=== PATIENT | female | born 1965 | race Caucasian/White ===

== ENCOUNTER → 2024-02-29 14:01 | Outpatient (REF) | payer BC, SELFPAY | LOC: WDC 14:01 | PROVIDERS: ATTENDING PHYSICIAN Obstetrics & Gynecology Gynecology; FAMILY PHYSICIAN Family Medicine | DX: R92.2 Inconclusive mammogram (principal) | CPT/HCPCS: 76641 ==

== ENCOUNTER → 2024-05-02 06:05 | Outpatient (REF) | payer BC, SELFPAY ==
[2024-05-02 10:08] LABS: ALT (SGPT) 22 U/L (0-35); AST (SGOT) 32 U/L (14-36); Albumin 4.3 g/dl (3.5-5.0); Alkaline Phosphatase 62 U/L (38-126); Blood Urea Nitrogen 26 mg/dl (7-17); Calcium 9.5 mg/dl (8.4-10.2); Carbon Dioxide 29 mmol/L (22-30); Chloride 104 mmol/L (98-107); Glucose 85 mg/dl (70-99); HDL Cholesterol 74 mg/dl; LDL Cholesterol, Calculated 165 mg/dl; Potassium 4.4 mmol/L (3.5-5.1); Sodium 141 mmol/L (135-145); Total Bilirubin 0.6 mg/dl (0.2-1.3); Total Cholesterol 254 mg/dl (50-199); Triglyceride 76 mg/dl (10-149); Very Low Density Lipoprotein 15 mg/dl (0-30); eGFR > 60.00
[2024-05-02 10:36] LABS: TSH Reflex To Free T4 0.94 uIU/ml (0.47-4.68)
== END ==
LOC: HWLAB 06:05
PROVIDERS: ATTENDING PHYSICIAN Nurse Practitioner Family
DX: E03.9 Hypothyroidism, unspecified (principal); Z13.220 Encounter for screening for lipoid disorders
CPT/HCPCS: 36415; 80053; 80061; 84443

== ENCOUNTER → 2024-09-09 15:43 | Outpatient (REF) | payer BC, SELFPAY | LOC: WDC 15:43 | PROVIDERS: ATTENDING PHYSICIAN Obstetrics & Gynecology Gynecology; FAMILY PHYSICIAN Family Medicine | DX: Z12.31 Encounter for screening mammogram for malignant neoplasm of breast (principal) | CPT/HCPCS: 77063; 77067 ==

== ENCOUNTER 2024-10-15 05:49 | Emergency (ER) | payer BC, SELFPAY ==
[2024-10-15 05:51] VITALS: BP 130/92
--- NOTE | 2024-10-15 06:15 | ED.GENMED ---
History of Present Illness
General
Chief Complaint: Abdominal Symptoms
Source: patient
Exam Limitations: none
Time Seen by Provider: 10/15/24 06:08
Nursing documentation reviewed up to this point in time: agreed with
History of Present Illness
History of Present Illness:
59-year-old female with a past medical history of GERD, hypothyroidism who presents to the emergency room for evaluation of nausea, vomiting, diarrhea. Patient reports symptoms have been ongoing since although she had some slight
improvement Monday returned on Monday and consistent since. She reports nausea and vomiting, difficulty holding anything down. She reports nonbloody diarrhea. She reports mild associated abdominal pain. She says that she started to feel
dizzy/lightheaded and believes she is likely dehydrated. She thinks she may have had a low-grade fever but none since. She denies any chest pain, cough, shortness of breath, URI symptoms. Denies any other complaints.
Past History
Past History
ED Past Medical History: Other (Seasonal allergies)
ED Past Surgical History: None
Social History
Tobacco: Non-smoker
Alcohol: None
Family History
Family History: Negative Diabetes, Hypertension or CAD
Review of Systems
Review of Systems
All Other Systems: ROS reviewed and negative except as documented in HPI and ROS
Constitutional: Denies fever
EENT: Denies sore throat or runny nose
Respiratory: Denies cough or trouble breathing
Cardiac: Denies chest pain
ABD/GI: Reports abdominal pain, nausea, vomiting and diarrhea
: Denies flank pain
Musculoskeletal: Denies neck pain or back pain
Neurological: Reports dizzy; Denies headache
Phy Exam
Physical Exam
Physical Exam:
General: Awake, alert; no acute distress
Head: Normocephalic, atraumatic
Eyes: Conjunctiva normal, sclera anicteric
Throat: Airway intact, dry mucous membrane
Neck: Trachea midline
Lungs: Clear to auscultation bilaterally, no wheezing, rales, rhonchi
Heart: Regular rate and rhythm, no murmurs, gallops, or rubs
Abd: Soft, non distended, minimally tender left lower abdomen, no masses
Neuro: No gross deficits
Skin: Warm, dry
Extremities: Warm and well-perfused
Scores
Heart Failure Risk
Heart Failure Risk Score: Not Applicable
Heart Score for Chest Pain Patients
STEMI patient?: Not applicable
Withdrawal Assessment of Alcohol
Withdrawal Assessment Completed?: Not applicable
Course
Orders/Labs/Results
Orders:
Orders
10/15/24 06:09
0.9% Sodium Chloride 1000 ml [Nss] 1,000 ml IV BOLUS
Ondansetron Injectable [Zofran] 4 mg IV NOW STA
10/15/24 06:15
CT Abd/pelvis W Iv Cont Urgent
Comment:
Reason For Exam: abd pain, N/V/D
Norovirus by PCR Urgent
RANJANA Source: Feces/Stool
Specimen Description:
Stool Culture Urgent
RANJANA Source: Feces/Stool
Specimen Description:
Test Result ONCE
10/15/24 06:43
COVID-19 Antigen Urgent
Source: Nasal Swab
Complete Blood Count/With Diff Urgent
Comprehensive Metabolic Panel Urgent
HCG, Serum Qualitative Screen Urgent
Lipase Urgent
Influenza A+B Rapid Molecular Urgent
RANJANA Source: Nasal Swab
Specimen Description:
Abnormal Lab Results
10/15/24
06:43
Hgb 16.2 H g/dL
(12.0-16.0)
Lymphocytes % 16.1 L %
(20.5-51.1)
Glucose 101 H mg/dl
(70-99)
10/15/24 06:43
10/15/24 06:43
Vital Signs
Initial and Last Documented VS:
Initial Vital Signs
Temp Pulse Resp BP Pulse Ox
36.7 C 94 18 130/92 100
10/15/24 05:51 10/15/24 05:51 10/15/24 05:51 10/15/24 05:51 10/15/24 05:51
Last Documented Vital Signs
Temp Pulse Resp BP Pulse Ox
36.7 C 68 18 103/82 100
10/15/24 05:51 10/15/24 08:04 10/15/24 08:04 10/15/24 08:04 10/15/24 08:04
MDM/Problems Addressed
Differential Diagnosis Includes:
Gastroenteritis, colitis, diverticulitis
MDM/Problems Addressed:
59-year-old female presents for nausea/vomiting/diarrhea associated with mild abdominal pain persistent x 5 days. Started to feel lightheaded and dehydrated. Vitals and exam as above. Will place an IV check labs including a CBC and a CMP, lipase.
Check CT abdomen pelvis. Provide fluids and Zofran. Reassess after the above.
Labs reviewed: CBC and CMP unremarkable, lipase normal, hCG negative. COVID and flu swabs negative. CT abdomen pelvis shows no acute pathology. There was a nodule/cyst on the kidney and some mild hepatomegaly which will require outpatient
follow-up. Her LFTs are normal. Clinically patient says she is feeling a bit better after fluids and Zofran. Will trial p.o. if she is tolerating p.o. plan for discharge on bland diet with Zofran as needed. She feels very comfortable with this
plan.
*Radiology
Radiology exam reviewed: radiology read reviewed
*Pulse Oximetry
Patient hypoxic: no
*Critical Care Note
Total Time (30-74mins, 75-104mins- exclusive of procedures): Not Applicable
Data Reviewed
Source: patient and records
ED Attending Note
-
Portions of this chart may have been created with voice recognition software.� Occasional wrong word or��sound alike� substitutions may have occurred due to the inherent limitations of voice recognition software.
Discharge Plan
Departure
Patient Disposition: Home (Routine Discharge)
Date of Disposition: 10/15/24
Time of Disposition: 09:16
Patient with high blood pressure during this ER visit?: No
Discharge Problem:
Nausea, vomiting and diarrhea, Nodule on liver
Instructions: [place] Diet, Nausea and Vomiting, Adult (DC)
Prescriptions:
New
ondansetron 4 mg tablet,disintegrating
4 mg PO TIDPRN PRN (Reason: nausea/vomiting) Qty: 20 0RF
No Action
levothyroxine 125 MCG tablet
125 mcg PO DAILY
omeprazole 20 mg Tablet,Delayed Release (Dr/Ec)
20 mg PO DAILY
Referrals:
Stephanie Fitzpatrick MD [Family Provider] - Follow up in 2-3 days
Activity Restrictions/Additional Instructions:
You were seen in the emergency room for nausea, vomiting, and diarrhea. You were mildly dehydrated and given some fluids and you were given some Zofran to help with your nausea. We checked lab work which showed no significant abnormalities. We
checked a CT of your abdomen which showed a nodule or cyst on your liver which needs follow-up�you should talk to your primary doctor within the next week or 2 to follow-up on this finding; otherwise your CT showed no other acute issues. We think
you likely have a GI virus�you should eat a bland diet for the next few days and drink plenty of fluids. You can take Zofran as needed for nausea. If you feel your symptoms are worsening you should return to the emergency room to be reassessed.
Thank you for visiting the Emergency Department at [facility].
1. Please schedule a follow up appointment as directed. Call first thing tomorrow morning to make an appointment.
2. If indicated, please take your medications as instructed and indicated on discharge paperwork.
3. If any of your symptoms do not improve, or persist, or become more severe within 6-12 hours, please return to the emergency department for further care.
4. Please return to the emergency department if you develop a headache, neck pain/stiffness, fever greater than 100.4F, chest pain, shortness of breath, persistent nausea, vomiting, slurred speech, difficulty walking, numbness/tingling, weakness,
signs of infection or any other symptoms that are worrisome to you.
Please call [phone] if you have any questions.
Interventions
Interventions:
*Risk Screen - Suicide Last Done: 10/15/24 05:51
*General Assessment Last Done: 10/15/24 05:51
*Neglect/Abuse Screening Last Done: 10/15/24 05:51
ED- Fall Risk Assessment Last Done: 10/15/24 06:24
*ED COVID-19 Vaccine History Last Done: 10/15/24 06:24
MN-Lfgilj-Jpknvmjwsy Assessment Last Done: 10/15/24 06:24
Discharge Date and Time
Print Language: NORWEGI[place]
[2024-10-15] MEDS: NSS 1000 IV ×2 (06:53→10:01)
[2024-10-15] MEDS: ZOFRAN 4 MG IV (06:57)
[2024-10-15 07:05] LABS: % Basophils 0.1 % (0-2); % Eosinophils 1.2 % (0-6); % Immature Granulocytes 0.3 % (0-0.5); % Lymphocytes 16.1 % (20.5-51.1); % Monocytes 7.6 % (1.7-9.3); % Neutrophils 74.7 % (42.2-75.2); Absolute Eosinophils 0.1 10^3/uL (0-0.7); Absolute Lymphocytes 1.2 10^3/uL (1.2-3.4); Absolute Monocytes 0.6 10^3/uL (0.1-0.6); Absolute Neutrophils 5.6 10^3/uL (1.4-6.5); Hematocrit 46.6 % (37.0-47.0); Hemoglobin 16.2 g/dL (12.0-16.0); Mean Corp Hgb Conc. 34.8 g/dL (33.0-37.0); Mean Corpuscular Hgb 30.2 pg (27.0-31.0); Mean Corpuscular Volume 86.8 fL (81.0-99.0); Nucleated Red Blood Cells % 0 %; Platelet Count 248 10^3/uL (130-400); Red Blood Cell Count 5.37 10^6/uL (4.20-5.40); Red Cell Dist. Width 12.7 % (11.5-14.5); White Blood Cell Count 7.5 10^3/uL (4.8-10.8)
[2024-10-15 07:26] LABS: HCG, Serum Qualitative Screen Negative
[2024-10-15 07:35] LABS: ALT (SGPT) 22 U/L (0-35); AST (SGOT) 21 U/L (14-36); Albumin 4.3 g/dl (3.5-5.0); Alkaline Phosphatase 52 U/L (38-126); Blood Urea Nitrogen 14 mg/dl (7-17); Calcium 9.2 mg/dl (8.4-10.2); Carbon Dioxide 22 mmol/L (22-30); Chloride 103 mmol/L (98-107); Glucose 101 mg/dl (70-99); Lipase 43 U/L (23-300); Potassium 3.6 mmol/L (3.5-5.1); Sodium 136 mmol/L (135-145); Total Protein 7.1 g/dl (6.3-8.2); eGFR > 60.00
[2024-10-15 07:36] LABS: COVID-19 Antigen Negative (Negative)
[2024-10-15 08:01] VITALS: BMI 25.8
[2024-10-15 08:04] VITALS: BP 103/82
[2024-10-15 10:02] VITALS: BP 111/84
[2024-10-15 11:00] VITALS: BP 99/72
--- NOTE | 2024-10-15 11:15 | EDRN ---
Reviewed discharge instructions with patient. Verbalized understanding. Ambulated with steady gait.
[2024-10-15 11:27] VITALS: BP 99/72
== END 2024-10-15 11:15 | disposition home or self-care (01) ==
LOC: EMR 05:49
PROVIDERS: EMERGENCY PHYSICIAN Emergency Medicine; FAMILY PHYSICIAN Family Medicine
DX: R11.2 Nausea with vomiting, unspecified (principal); R19.7 Diarrhea, unspecified; K76.89 Other specified diseases of liver; E03.9 Hypothyroidism, unspecified; K21.9 Gastro-esophageal reflux disease without esophagitis
CPT/HCPCS: 99284; 96374; 96361; 74177; 80053; 83690; 84703; 85025; 87502; 87811; Q9967

== ENCOUNTER → 2024-11-15 18:50 | Outpatient (REF) | payer BC, SELFPAY | LOC: MRI 3T 18:50 | PROVIDERS: ATTENDING PHYSICIAN Internal Medicine; FAMILY PHYSICIAN Family Medicine | DX: K76.9 Liver disease, unspecified (principal) | CPT/HCPCS: 74183; A9575 ==

== ENCOUNTER → 2025-02-10 15:07 | Outpatient (REF) | payer BC, SELFPAY | LOC: WDC 15:07 | PROVIDERS: ATTENDING PHYSICIAN Obstetrics & Gynecology Gynecology; FAMILY PHYSICIAN Family Medicine | DX: R92.2 Inconclusive mammogram (principal) | CPT/HCPCS: 76641 ==

== ENCOUNTER → 2025-04-02 07:34 | Outpatient (REF) | payer BC, SELFPAY ==
[2025-04-02 08:29] LABS: ALT (SGPT) 33 U/L (0-35); AST (SGOT) 34 U/L (14-36); Albumin 4.5 g/dl (3.5-5.0); Alkaline Phosphatase 47 U/L (38-126); Blood Urea Nitrogen 15 mg/dl (7-17); Calcium 9.1 mg/dl (8.4-10.2); Carbon Dioxide 28 mmol/L (22-30); Chloride 109 mmol/L (98-107); Glucose 81 mg/dl (70-99); HDL Cholesterol 76 mg/dl; LDL Cholesterol, Calculated 185 mg/dl; Potassium 4.2 mmol/L (3.5-5.1); Sodium 142 mmol/L (135-145); Total Protein 7.4 g/dl (6.3-8.2); Very Low Density Lipoprotein 12 mg/dl (0-30); eGFR > 60.00
== END ==
LOC: REG 07:34
PROVIDERS: ATTENDING PHYSICIAN Physician Assistant; FAMILY PHYSICIAN Family Medicine
DX: Z00.00 Encounter for general adult medical examination without abnormal findings (principal); E03.9 Hypothyroidism, unspecified; K76.89 Other specified diseases of liver; F51.01 Primary insomnia; K21.9 Gastro-esophageal reflux disease without esophagitis
CPT/HCPCS: 36415; 80053; 80061; 84439; 84443

== ENCOUNTER → 2025-04-23 14:21 | Outpatient (REF) | payer BC, SELFPAY | LOC: CLAB 14:21 | DX: D48.5 Neoplasm of uncertain behavior of skin (principal) | CPT/HCPCS: 88305 ==

== ENCOUNTER → 2025-04-23 14:51 | Outpatient (REF) | payer BC, SELFPAY | LOC: REG 14:51 | PROVIDERS: ATTENDING PHYSICIAN Physician Assistant | DX: E78.2 Mixed hyperlipidemia (principal); E03.9 Hypothyroidism, unspecified | CPT/HCPCS: 36415; 75571; 84443 ==

== ENCOUNTER → 2025-05-16 07:38 | Outpatient (REF) | payer BC, SELFPAY | LOC: CLAB 07:38 | PROVIDERS: Pathology Anatomic Pathology & Clinical Pathology; ATTENDING PHYSICIAN Dermatology Dermatopathology | DX: D22.5 Melanocytic nevi of trunk (principal); D48.5 Neoplasm of uncertain behavior of skin | CPT/HCPCS: 88305 ==